=== PATIENT | male | born 1960 | race Caucasian/White ===

== ENCOUNTER → 2017-06-28 | Outpatient (CLI) | payer OTHER ==
[~2017-06-28] VITALS: Ht 175.3 cm; Wt 77.2 kg
[~2017-06-28] MED LIST: ASPIR 8181 M1 PO; ASPIR-TRIN325 M1 PO; COLACE100 MG PO; DURAGESIC100 MCG TD; FLEXERIL5 MG PO; GABAPENTIN400 MG PO; HYDROXYZINE HCL25 MG PO; MORPHINE SULFAT15 M1 PO; MOTRIN800 MG PO; NEURONTIN300 MG PO; OXAYDO5 MG PO; PERCOCET 5-3251 EACH PO; PERCOCET 7.51 TABLET PO; SIMVASTATIN40 MG PO; TEGRETOL200 MG PO; VENTOLIN HFA18 GM IH
[2017-06-28 10:16] VITALS: BP 128/86
== END | disposition home or self-care (01) ==
LOC: OPR 09:54
PROC: BR3 Imaging, Axial Skeleton, Except Skull and Facial Bones, Magnetic Resonance Imaging (MRI) (ICD-10-PCS; principal; 2017-06-28)
DX: M96.1 Postlaminectomy syndrome, not elsewhere classified (principal); G89.4 Chronic pain syndrome; F17.210 Nicotine dependence, cigarettes, uncomplicated; F31.9 Bipolar disorder, unspecified; R26.2 Difficulty in walking, not elsewhere classified
CPT/HCPCS: 72146; 93005; J1100; J2250; J2405; J3010